=== PATIENT | female | born 1985 | race Caucasian/White ===

== ENCOUNTER 2019-04-12 10:11 | Emergency (ER) | payer BC ==
[~2019-04-12] VITALS: Ht 162.5 cm; Wt 117.9 kg
[~2019-04-12 10:11] MED LIST: MOTRIN800 MG PO; NO DAILY MEDS
[2019-04-12] MEDS ORDERED: PEPCID20 MG PO (12:08)
[2019-04-12] MEDS ORDERED: MEDROL DOSEPAK4 MG PO (12:08)
[2019-04-12] MEDS ORDERED: EPIPEN 2-P0.3 MG/0.3 IJ (12:08)
[2019-04-12] MEDS ORDERED: BENADRYL25 M2 PO (12:08)
== END 2019-04-12 12:20 | disposition home or self-care (01) ==
LOC: ED 10:11
DX: T63.441A Toxic effect of venom of bees, accidental (unintentional), initial encounter (principal); L29.8 Other pruritus; R21 Rash and other nonspecific skin eruption; Y92.89 Other specified places as the place of occurrence of the external cause

== ENCOUNTER → 2021-05-19 | Outpatient (CLI) | payer BC ==
[~2021-05-19] MED LIST changes: +BENADRYL25 M2 PO; +EPIPEN 2-P0.3 MG/0.3 IJ; +MEDROL DOSEPAK4 MG PO; +PEPCID20 MG PO
== END | disposition home or self-care (01) ==
LOC: COVID19 17:06
PROVIDERS: ATTEND Internal Medicine
DX: U07.1 COVID-19 (principal)

== ENCOUNTER 2022-05-21 12:04 | Emergency (ER) | payer BC ==
[~2022-05-21] VITALS: Ht 162.6 cm; Wt 113.4 kg
[2022-05-21 13:20] LABS: BASO % 0.4 % (0.0-1.0); EOS % 0.8 % (1.0-4.0); HEMATOCRIT 38.8 % (37.0-47.0); LYMPH # 1.2 10*3/uL (1.3-4.4); LYMPH % 25.8 % (27.0-41.0); MEAN CELL VOLUME 80.3 fl (81.0-99.0); MEAN CORPUSCULAR HGB 26.1 pg (27.0-31.0); MEAN CORPUSCULAR HGB CONC 32.5 g/dl (33.0-37.0); MEAN PLATELET VOLUME 9.1 fl (9.6-12.3); MONO # 0.5 10*3/uL (0.1-1.0); MONO % 9.5 % (3.0-9.0); NEUT % 63.3 % (47.0-73.0); PLATELET COUNT AUTOMATED 280 10*3/uL (130-400); RED BLOOD COUNT 4.83 10*6/uL (4.10-5.10); RED CELL DISTRI WIDTH 13.8 % (0-14.5); WHITE BLOOD COUNT 4.7 10*3/uL (4.8-10.8)
[2022-05-21 13:47] LABS: ALKALINE PHOSPHATASE 80 U/L (45-117); BUN 13 mg/dl (7-24); CHLORIDE 106 mmol/L (98-107); CREATININE 0.86 mg/dL (0.55-1.02); POTASSIUM 4.1 mmol/L (3.5-5.1); SGOT/AST 15 IU/L (3-35); SGPT/ALT 28 U/L (12-78); SODIUM 137 mmol/L (136-145); TOTAL PROTEIN 7.7 gm/dL (6.4-8.2)
[2022-05-21] MEDS ORDERED: NAPROSYN500 MG PO (14:31)
== END 2022-05-21 14:38 | disposition home or self-care (01) ==
LOC: ED 12:04
PROVIDERS: Student in an Organized Health Care Education/Training Program
DX: R51.9 Headache, unspecified (principal); Z79.899 Other long term (current) drug therapy

== ENCOUNTER → 2023-09-22 | Outpatient (CLI) | payer BC ==
[~2023-09-22] MED LIST changes: +NAPROSYN500 MG PO
== END | disposition home or self-care (01) ==
LOC: US 09-20 08:00
PROVIDERS: ATTEND Physician Assistant
DX: K80.20 Calculus of gallbladder without cholecystitis without obstruction (principal); R10.9 Unspecified abdominal pain

== ENCOUNTER → 2023-10-12 | Outpatient (CLI) | payer BC ==
[~2023-10-12] MED LIST changes: +SINCALIDE 5 MCG VIAL IV SCH; +SINCALIDE IV STA; +SODIUM CHLORIDE 0.9% IV STA; +Technetium Tc 99M Mebrofenin 1 KIT KIT IV SCH
== END | disposition home or self-care (01) ==
LOC: NM 10-11 07:00
PROVIDERS: ATTEND Physician Assistant
DX: K80.20 Calculus of gallbladder without cholecystitis without obstruction (principal); K21.9 Gastro-esophageal reflux disease without esophagitis

== ENCOUNTER 2025-02-14 11:48 | Emergency (ER) | payer BC ==
[~2025-02-14] VITALS: Ht 160 cm; Wt 113.4 kg
[~2025-02-14 11:48] MED LIST changes: -SINCALIDE 5 MCG VIAL IV SCH; -SINCALIDE IV STA; -SODIUM CHLORIDE 0.9% IV STA; -Technetium Tc 99M Mebrofenin 1 KIT KIT IV SCH
[2025-02-14] MEDS ORDERED: TRAZODONE50 MG PO (12:03)
[2025-02-14] MEDS ORDERED: LYVISPAH10 M1 PO (12:03)
[2025-02-14] MEDS ORDERED: AMOX-CLAV 875-1 EACH PO (12:20)
[2025-02-14] MEDS ORDERED: Amoxicillin/Clavulanate Pota 875 MG TAB PO ONE (12:25)
[2025-02-14] MEDS ORDERED: Tdap Vaccine 0.5 ML SYR (Adult Vaccine) IM ONE (12:25)
== END 2025-02-14 12:35 | disposition home or self-care (01) ==
LOC: ED 11:48
DX: S61.451A Open bite of right hand, initial encounter (principal); Z79.899 Other long term (current) drug therapy; W55.01XA Bitten by cat, initial encounter; Y93.89 Activity, other specified; Y92.89 Other specified places as the place of occurrence of the external cause; Y99.8 Other external cause status